=== PATIENT | female | born 1945 | race Caucasian/White ===

== ENCOUNTER → 2020-11-30 | Outpatient (CLI) | payer MEDICARE, BC ==
[~2020-11-30] MED LIST: MACROBID 100 M100 MG PO; PYRIDIUM200 MG PO; VERTICALM25 MG PO; VOLTAREN100 GM TP; ZOFRAN ODT 4 MG4 MG SL
[2020-12-01 10:21] LABS: CREATININE, URINE 97.5 mg/dL (Not Estab.)
== END ==
LOC: LAB 07:42
PROVIDERS: Internal Medicine Nephrology
DX: N18.30 Chronic kidney disease, stage 3 unspecified (principal); E87.6 Hypokalemia; E55.9 Vitamin D deficiency, unspecified
CPT/HCPCS: 36415; 80053; 82043; 82570; 83735

== ENCOUNTER → 2021-11-22 | Outpatient (CLI) | payer MEDICARE, BC ==
[2021-11-22 10:53] LABS: BUN/CREATININE RATIO 16 (0-10)
== END ==
LOC: LAB 09:05
PROVIDERS: Internal Medicine Nephrology
DX: N18.2 Chronic kidney disease, stage 2 (mild) (principal); E87.6 Hypokalemia; E55.9 Vitamin D deficiency, unspecified
CPT/HCPCS: 36415; 80053; 81001; 82570; 83735; 84156